=== PATIENT | female | born 1985 | race Caucasian/White ===

== ENCOUNTER 2019-06-19 13:34 | Emergency (ER) | payer MEDICAID ==
[~2019-06-19] VITALS: Ht 170.2 cm; Wt 146.7 kg
[2019-06-19 13:41] VITALS: BP 120/80
[2019-06-19] MEDS ORDERED: ALBUTEROL SULFATE 2.5 MG/3 ML ONE (14:28)
[2019-06-19] MEDS ORDERED: ALBUTEROL SULFATE 2.5 MG/3 ML NPPB ONE (14:30)
--- NOTE | 2019-06-19 15:34 | NUR ---
WOB DEMINISHED POST BREATHING TREATMENT, POX 94%
== END 2019-06-19 15:37 | disposition home or self-care (01) ==
LOC: ED 15:28
DX: J98.01 Acute bronchospasm (principal); B34.9 Viral infection, unspecified; F17.200 Nicotine dependence, unspecified, uncomplicated
CPT/HCPCS: 71046; 93005; 94640; 99283; J7512; J7613

== ENCOUNTER 2019-07-06 08:56 | Emergency (ER) | payer MEDICAID ==
[~2019-07-06] VITALS: Ht 172.7 cm; Wt 144.0 kg
--- NOTE | 2019-07-06 10:22 | NUR ---
TASK RN: PT AMBULATORY WITH STEADY GAIT TO ROOM FROM LOBBY AT THIS TIME.
[2019-07-06 10:31] LABS: BASOPHILS # (AUTO) 0.02 x10^3/uL (0-0.1); BASOPHILS % (AUTO) 0 % (0-1); EOSINOPHILS # (AUTO) 0.06 x10^3/uL (0-0.4); EOSINOPHILS % (AUTO) 1 % (1-7); LYMPHOCYTES # (AUTO) 2.41 x10^3/uL (1-3.4); LYMPHOCYTES % (AUTO) 24 % (22-44); MD NO; MEAN CORPUSCULAR HGB CONC 33.4 g/dL (32.4-35.8); MEAN CORPUSCULAR VOLUME 89.6 fL (80-100); MEAN PLATELET VOLUME 8.2 fL (7.4-10.4); MONOCYTES % (AUTO) 7 % (2-9); NEUTROPHILS # (AUTO) 6.68 x10^3/uL (1.8-6.8); NEUTROPHILS % (AUTO) 68 % (42-75); PLATELET COUNT 261 x10^3/uL (130-400); RED BLOOD COUNT 4.74 x10^6/uL (3.82-5.3); RED CELL DISTRIBUTION WIDTH 14.9 % (9.6-15.2)
[2019-07-06 10:36] LABS: CHLORIDE 110 mmol/L (98-107)
[2019-07-06 10:42] LABS: ALANINE AMINOTRANSFERASE 21 U/L (12-78); ALBUMIN 3.1 g/dL (3.4-5.0); ANION GAP 9 mmol/L (5-15); CALCIUM 9.1 mg/dL (8.5-10.1); CREATININE 0.57 mg/dL (0.55-1.02)
--- NOTE | 2019-07-06 10:54 | NUR ---
pt amb to br with steady gait for ua.
[2019-07-06 11:14] LABS: ALKALINE PHOSPHATASE 66 U/L (45-117); BILIRUBIN,TOTAL 0.3 mg/dL (0.2-1.0); TOTAL PROTEIN 7.4 g/dL (6.4-8.2)
--- NOTE | 2019-07-06 11:17 | NUR ---
PT STATES "I'm , (LMP 04/01) but I started coughing this AM and I started bleeding" G4, P2. PT'S AOX4. RESPS EVEN AND UNLABORED. BP/SPO2 MONITORS IN PLACE. CALL LIGHT WITHIN REACH.
--- NOTE | 2019-07-06 11:35 | NUR ---
PT IS NOT ABLE TO PROVIDE URINE SAMPLE AT THIS TIME. EDMD NOTIFIED.
[2019-07-06 11:36] VITALS: BP 116/79
--- NOTE | 2019-07-06 11:40 | NUR ---
edmd at bedside to explain all results at this time. pt verbalized understanding.
--- NOTE | 2019-07-06 12:30 | NUR ---
Patient given discharge instructions and they have confirmed that they understand the instructions. Patient ambulatory with steady gait.
== END 2019-07-06 12:31 | disposition home or self-care (01) ==
LOC: ED 12:00
DX: O20.0 Threatened abortion (principal)
CPT/HCPCS: 36415; 76801; 80053; 84702; 85025; 86901; 99284

== ENCOUNTER 2019-07-26 19:52 | Emergency (ER) | payer MEDICAID ==
[~2019-07-26] VITALS: Ht 172.7 cm; Wt 144.2 kg
[2019-07-26 20:49] VITALS: BP 139/88
[2019-07-26] MEDS ORDERED: DIPH,PERTUSS(ACELL),TET VAC/PF 0.5 ML IM-VACC ONE (21:00)
[2019-07-26] MEDS ORDERED: LIDOCAINE-MPF 1%, 5ML INFIL ONE (21:00)
== END 2019-07-26 21:16 | disposition home or self-care (01) ==
LOC: ED 20:45
DX: O26.892 Other specified pregnancy related conditions, second trimester (principal); O09.511 Supervision of elderly primigravida, first trimester; L03.114 Cellulitis of left upper limb; Z3A.14 14 weeks gestation of pregnancy
CPT/HCPCS: 99283